=== PATIENT | female | born 1975 | race Caucasian/White ===

== ENCOUNTER 2020-11-10 14:04 | Outpatient (CLI) | payer OTHER, SELFPAY | END 2020-11-10 14:05 | disposition home or self-care (01) | LOC: ANHAUDIO 14:06 | DX: R42 Dizziness and giddiness (principal) | CPT/HCPCS: 92552; 92556; 92567 ==

== ENCOUNTER 2020-12-02 08:16 | Outpatient (CLI) | payer OTHER, SELFPAY | END 2020-12-02 08:17 | disposition home or self-care (01) | DX: R42 Dizziness and giddiness (principal) | CPT/HCPCS: 92540; 92546 ==